=== PATIENT | male | born 1965 | race Hispanic/Latino ===

== ENCOUNTER → 2023-04-19 | Outpatient (CLI) | payer OTHER ==
[~2023-04-19] MED LIST: IOPAMIDOL 370 MG/ML 100 ML INFUS..BTL INJ ONE; NITROGLYCERIN 0.4 MG SUBL ONE; SODIUM CHLORIDE 0.9% 100 ML ONE
[2023-04-19 08:27] LABS: CREATININE, SERUM 0.82 mg/dL (0.72-1.25)
== END ==
LOC: CT 07:40
PROVIDERS: ATTEND Internal Medicine
DX: Z13.6 Encounter for screening for cardiovascular disorders (principal)
CPT/HCPCS: 36415; 75574; 82565; 84520; J7050; Q9967